=== PATIENT | female | born 1970 | race Caucasian/White ===

== ENCOUNTER 2017-07-13 16:25 | Emergency (ER) | payer OTHER ==
[~2017-07-13] VITALS: Ht 157.5 cm; Wt 65.0 kg
[~2017-07-13 16:25] MED LIST: VITAMIN D400 UNI4 PO
[2017-07-13 17:44] VITALS: BP 119/79
== END 2017-07-13 17:45 | disposition home or self-care (01) | DRG 563 ==
LOC: ED 16:25
DX: S93.401A Sprain of unspecified ligament of right ankle, initial encounter (principal); X50.1XXA Overexertion from prolonged static or awkward postures, initial encounter; W17.2XXA Fall into hole, initial encounter; Y93.01 Activity, walking, marching and hiking; Y92.148 Other place in prison as the place of occurrence of the external cause

== ENCOUNTER 2018-04-26 11:16 | Emergency (ER) | payer OTHER ==
[~2018-04-26] VITALS: Ht 157.5 cm; Wt 67.3 kg
[2018-04-26] MEDS ORDERED: GENTAK0.32 OS (11:52)
[2018-04-26 12:08] VITALS: BP 128/87
== END 2018-04-26 12:09 | disposition home or self-care (01) | DRG 125 ==
LOC: ED 11:16
DX: S05.02XA Injury of conjunctiva and corneal abrasion without foreign body, left eye, initial encounter (principal); H57.12 Ocular pain, left eye; X58.XXXA Exposure to other specified factors, initial encounter